=== PATIENT | female | born 1970 | race Caucasian/White ===

== ENCOUNTER 2021-01-21 11:49 | Emergency (ER) | payer OTHER, SELFPAY ==
[2021-01-21 12:07] VITALS: BP 179/95; PULSE 60; RESP 20; TEMP 36.8; O2SAT 97; BMI 46.7
--- NOTE | 2021-01-21 12:15 | XR_ITS ---
PROCEDURE: XR CHEST 2V CLINICAL HISTORY: chronic cough COMPARISON: No exams were available for comparison FINDINGS: Mild cardiomegaly without failure. There is mild pectus deformity. There are mild atelectatic changes in the left lower lung zone. Degenerative changes thoracic spine. IMPRESSION: Mild left lower lobe atelectasis Dictated by: Quan Pederson MD 01/21/2021 12:34 Quan Pederson MD in [place] 01/21/2021 12:34
[2021-01-21 12:19] VITALS: BP 179/95; PULSE 92; RESP 20; TEMP 36.8; O2SAT 97
--- NOTE | 2021-01-21 12:38 | HMH.EDUTC ---
[facility] – [place] Disposition Clinical Impression: Bronchitis Disposition: Home, Self-Care Condition on Discharge: Good Instructions: DI for Acute Bronchitis Additional Instructions: Drink plenty of fluids. Take tylenol or ibuprofen for pain or fever. Take the medications as directed. Follow up with your regular doctor. GO TO THE ER FOR ANY WORSENING SYMPTOMS Prescriptions: methylPREDNISolone [Medrol] 4 mg PO DIRECTED 6 Days #21 tab.[email or web address] Transmission Status: Received by [facility] Cefdinir [Omnicef 300mg Capsule] 300 mg PO BID #20 cap Transmission Status: Received by [facility] [employer] Benzonatate [Tessalon Perle 100mg Cap] 100 mg PO TIDP PRN #30 cap PRN Reason: Cough Transmission Status: Received by [facility] Referrals: Provider,Referral, [Primary Care Provider] - Time of Disposition: 12:42 Medical Decision Making - Medical Records Medical records reviewed: No: I reviewed the patient's medical records. - Aurelio Inquiry Pt receiving controlled substance: No Vital Signs: 01/21/21 12:07 01/21/21 12:19 Temperature 98.3 F 98.3 F Temperature Source Oral Pulse Rate 92 H Pulse Rate [Left] 60 Respiratory Rate 20 20 Blood Pressure 179/95 H Blood Pressure [Right Arm] 179/95 H Blood Pressure Mean [Right Arm] 123 02 Sat by Pulse Oximetry 97 - Radiology Data #1 Image(s): Chest Image Reviewed: Yes I reviewed the patient's radiology image, Yes I have reviewed radiologist's interpretation Preliminary Findings: No Infiltrates Seen PROCEDURE: XR CHEST 2V CLINICAL HISTORY: chronic cough COMPARISON: No exams were available for comparison FINDINGS: Mild cardiomegaly without failure. There is mild pectus deformity. There are mild atelectatic changes in the left lower lung zone. Degenerative changes thoracic spine. IMPRESSION: Mild left lower lobe atelectasis Dictated by: Quan Pederson MD 01/21/2021 12:34 uQan Pederson MD in [place] 01/21/2021 12:34 [facility] [place] HPI - General Stated complaint: cough Time Seen by Provider: 01/21/21 12:15 Mode of Arrival: Ambulatory Source of Information: Patient Limitations: No Limitations Description of Symptoms (Recalled from Triage Doc. by RN): Productive cough x 6 weeks. No other symptoms HEENT Symptoms (Recalled from RN notes): Yes Resp Symptoms (Recalled from RN notes): No Skin Symptoms (Recalled from RN notes): No MS Symptoms (Recalled from RN notes): No Functional Status (Recalled from RN notes): wnl - History of Present Illness Provider Complaint: She states that she has been coughing for the past 6 weeks. She denies feeling bad, but at times she coughs a lot. It is not worse at any one certain time, not worse night or in the day. She took a z-pack about 3 weeks ago and she doesn't think it help very much. She denies any history of asthma or acid reflux. She take singlair and zyrtec already for allergies. She does not think that her allergies are any worse at this time than they normally are to be a cause of her cough. - Related Data Previous Rx's Medication Instructions Recorded Benzonatate [Tessalon Perle 100mg 100 mg PO TIDP PRN #30 cap 01/21/21 Cap] Cefdinir [Omnicef 300mg Capsule] 300 mg PO BID #20 cap 01/21/21 methylPREDNISolone [Medrol] 4 mg PO DIRECTED 6 Days #21 01/21/21 tab.[email or web address] Allergies Allergy/AdvReac Type Severity Reaction Status Date / Time No Known Allergies Allergy Verified 01/21/21 12:14 - Worker's Comp Is this a Worker's Comp case?: No [facility] History - Hepatitis A Screen Drug use history?: No High risk sexual behaviors?: No History of sexually transmitted infection?: No Currently employed?: No Childcare worker?: No Do you have indoor plumbing?: Yes Do you have electricity?: Yes Attestation statement:: This patient has been screened for Hepatitis A risk factors. I have reviewed the patient's past medical history: Yes Medical History: R
== END 2021-01-21 12:46 | disposition home or self-care (01) ==
PROVIDERS: Emergency Provider Nurse Practitioner Family
DX: J20.9 Acute bronchitis, unspecified (principal); E11.9 Type 2 diabetes mellitus without complications
CPT/HCPCS: 71046; 99202; G0463

== ENCOUNTER 2022-04-07 13:06 | Emergency (ER) | payer BC, SELFPAY ==
[2022-04-07 14:15] VITALS: BP 149/84; PULSE 89; RESP 17; TEMP 36.7; O2SAT 97; BMI 46.6
--- NOTE | 2022-04-07 14:30 | EXP.UTC ---
Discharge Plan Disposition Patient Disposition: Home, Self-Care Condition: Good Referrals Referrals: Maryellen Montoya MD [Primary Care Provider] - Enter time for follow up Activity Restrictions/Add. Instructions Additional Instructions/Restrictions: *Monitor Temp, Over the counter Motrin or Tylenol as directed/as needed Tylenol every 4 hours and Motrin every 6 hours (as long as your family doctor has told you that you can take it) for fever or pain. and straight to ER if unable to lower temp less than 101.0 after medication given *Warm salt water gargles may help to soothe the throat *Throat Lozenges? *Warm fluids like tea with honey may help to soothe the throat? *Sleep elevated *Humidifier/Vaporizer Follow up IMMEDIATELY for new or worsening symptoms or no Noticeable improvement over the next 48-72 hours. 911 for difficulty breathing or swallowing You were tested for today for COVID19 your test result should be back in the next 24-48 hours, you may check your results on the [facility] Portal Make sure to take your Vitamins Vit. C Vit D and Zinc if you can take them Clinical Impressions Clinical Impression: Generalized body aches Stand Alone Forms Stand Alone Forms: Work/School Release Discharge ED Provider: Linda Servin [facility] General Stated complaint: Elevated BP, fatigue Time Seen by Provider: 04/07/22 14:30 History of Present Illness Provider Complaint: Patient states that she has been feeling achy, cramping on and on off in her abdomen with nausea, fatigue States that several people at work have had COVID but she hasnt been around them States that she hasnt had fever or anything and has had some allergies but nothing out of her normal States today she had achy like feeling in her lower back area so she came in States that she was recently treated for HTN by her PCP and started medication on Monday for it and today its lower than it has been so she thinks the medication may be working Related Data Allergies Allergy/AdvReac Type Severity Reaction Status Date / Time No Known Allergies Allergy Verified 01/21/21 12:14 [facility] Medical History Atrial fibrillation Diabetes mellitus, type 2 History of gastroesophageal reflux (GERD) Hypertension Hypothyroid Urinary tract infection Surgical History H/O dilation and curettage Fleischmanns teeth extracted Social History Smoking Status: Never smoker second hand exposure: No alcohol intake: never current occupational status: other Travel in the last 8 weeks: None ROS Obtained: Yes All systems reviewed & no additional complaints except as documented and Yes Systems reviewed as appropriate & no additional complaints except as documented Constitutional Constitutional: Reports system reviewed and no additional complaints, except as documented, Reports body ache, Reports fatigue and Denies fever(s) ENT Ears, Nose, Mouth, and Throat: Reports system reviewed and no additional complaints, except as documented Cardiovascular Cardiovascular: Reports system reviewed and no additional complaints, except as documented and Reports as per HPI Gastrointestinal Gastrointestingal: Reports system reviewed and no additional complaints, except as documented, as per HPI, cramping and nausea (on and off for last few days); Denies diarrhea Genitourinary Female Genitourinary: Reports system reviewed and no additional complaints, except as documented, Reports as per HPI, Denies urinary frequency, Denies urinary urgency and Reports other Musculoskeletal Musculoskeletal: Reports other (achy like feeling in lower back on and off) Neurologic Neurologic: Reports system reviewed and no additional complaints, except as documented and Reports as per HPI Endocrine Endocrine: Reports fatigue Phy
[2022-04-07 15:04] LABS: Apearance,Urine Clear (Clear); Bilirubin,Urine 1+ (Negative); Blood, Urine 1+ (Negative); Color,Urine Yellow (Yellow); Glucose,Urine (UA) Negative (Negative); Ketones,Urine TRACE (Negative); PH,Urine 5.5 (5.0-8.5); Protein,Urine 1+ (Negative); UTC Leukocyte Esterase,Urine Negative (Negative); UTC Nitrate,Urine Negative (Negative); Urobilinogen,Urine 0.2 EU/dl (0.2)
[2022-04-07 15:19] VITALS: BP 149/84; PULSE 89; RESP 17; TEMP 36.7; O2SAT 97
== END 2022-04-07 15:24 | disposition home or self-care (01) ==
PROVIDERS: Emergency Provider Nurse Practitioner; PCP Internal Medicine
DX: R53.83 Other fatigue (principal); M54.50 Low back pain, unspecified; Z20.822 Contact with and (suspected) exposure to COVID-19
CPT/HCPCS: 81003; 99212; C9803; G0463; U0003; U0005